=== PATIENT | male | born 2000 ===

== ENCOUNTER 2020-11-13 15:18 | Emergency (ER) | payer SELFPAY ==
--- NOTE | 2020-11-13 18:46 | Emergency Department Report ---
ED Male HPI - General Chief complaint: Urogenital-Male Stated complaint: BLADDER PAIN AND PRESSURE Time Seen by Provider: 11/13/20 18:10 Source: patient Mode of arrival: Ambulatory Limitations: No Limitations - History of Present Illness Initial comments: The patient was evaluated in the emergency department for symptoms described in the history of present illness. He/she was evaluated in the context of the global COVID-19 pandemic, which necessitated consideration that the patient might be at risk for infection with the virus that causes COVID-19. Institutional protocols and algorithms that pertain to the evaluation of patients at risk for COVID-19 are in a state of rapid change based on information released by regulatory bodies including the CDC and federal and state organizations. These policies and algorithms were followed during the patient's care in the emergency department. Please note that these policies, procedures and recommendations changed on a rapid basis. 20-year-old -[place] male presents to the emergency room complaining of bladder pain and urinary urgency. Patient states bladder pain since Wednesday urinary urgency for 2 weeks. Patient states is never had this before. Patient denies any penile discharge. He denies any testicular pain or testicular swelling. Denies any nausea vomiting fever or chills. He does report his urine is dark but reports that has no smell. Patient denies any surgeries has no known drug allergies. Onset/Timin -: days(s) Location: abdomen Radiation: none Severity: mild Severity scale (0 -10): 3 Quality: burning Consistency: constant Improves with: none Worsens with: none denies: denies other symptoms, discharge, swelling, rash, urinary retention, blood in urine, nausea/vomiting, incontinence - Related Data Allergies Allergy/AdvReac Type Severity Reaction Status Date / Time No Known Allergies Allergy Unverified 11/13/20 18:34 ED Review of Systems ROS: Stated complaint: BLADDER PAIN AND PRESSURE Other details as noted in HPI Comment: All other systems reviewed and negative ED Physical Exam - General Limitations: No Limitations General appearance: alert, in no apparent distress - Head Head exam: Present: atraumatic, normocephalic - Eye Eye exam: Present: normal appearance - ENT ENT exam: Present: mucous membranes moist - Neck Neck exam: Present: normal inspection - Respiratory Respiratory exam: Present: normal lung sounds bilaterally. Absent: respiratory distress - Cardiovascular Cardiovascular Exam: Present: regular rate, normal rhythm. Absent: systolic murmur, diastolic murmur, rubs, gallop - GI/Abdominal GI/Abdominal exam: Present: soft, normal bowel sounds. Absent: distended, tenderness, guarding, rebound - Rectal Rectal exam: Present: deferred - Extremities Exam Extremities exam: Present: normal inspection - Back Exam Back exam: Present: normal inspection - Neurological Exam Neurological exam: Present: alert, oriented X3, normal gait - Psychiatric Psychiatric exam: Present: normal affect, normal mood - Skin Skin exam: Present: warm, dry, intact, normal color. Absent: rash ED Course Vital Signs 11/13/20 15:34 Temperature 98.3 F Pulse Rate 73 Respiratory 18 Rate Blood Pressure 121/79 O2 Sat by Pulse 96 Oximetry ED Medical Decision Making - Lab Data Laboratory Tests 11/13/20 18:40 Urine Color Yellow Urine Turbidity Clear Urine pH 6.0 Ur Specific [place] 1.028 Urine Protein 30 mg/dl Urine Glucose (UA) Neg Urine Ketones Neg Urine Blood Neg Urine Nitrite Neg Urine Bilirubin Neg Urine Urobilinogen 2.0 Ur Leukocyte Esterase Neg Urine WBC (Auto) 2.0 Urine RBC (Auto) 1.0 Urine Mucus 3+ - Medical Decision Making 20-year-old -[place] male presents to the emergency room complaining of bladder pain and urinary urgency. Patient states bladder pain since Wednesday urinary urgency for 2 weeks. Patient states is never had this before. Patient denies any penile discharge. He denies any testicular pain or testicular swelling. Denies any nausea vomiting fever or chills. He does report his urine is dark but reports that has no smell. Patient denies any surgeries has no known drug allergies. UA sent to lab Critical care attestation.: If time is entered above; I have spent that time in minutes in the direct care of this critically ill patient, excluding procedure time. ED Disposition Clinical Impression: Urinary urgency Disposition: HOME / SELF CARE / HOMELESS Is pt being admited?: No Does the pt Need Aspirin: No Condition: Stable Additional Instructions: Urinalysis is negative for any infection or concerns for diabetes. I recommend for you to follow-up with your primary care provider. Referrals: PEG JEFFRIES MD [Staff Physician] - 3-5 Days Forms: Work/School Release Form(ED)
[2020-11-13 19:08] LABS: Bilirubin,Urine NEG (Negative); Blood,Urine NEG (Negative); Color,Urine Yellow (Yellow); Mucus,Urine 3+ /HPF
[2020-11-13 20:18] VITALS: BP 146/71
== END 2020-11-13 20:15 | disposition home or self-care (01) ==
LOC: ED 15:18
DX: R39.15 Urgency of urination (principal)
CPT/HCPCS: 81001; 99283